=== PATIENT | male | born 1980 | race Caucasian/White ===

== ENCOUNTER 2016-10-07 11:07 | Emergency (ER) | payer BC ==
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
--- NOTE | 2016-10-07 11:45 | ER Document Report ---
ED Extremity Problem, Lower - General Chief Complaint: Leg Pain Stated Complaint: LEG AND KNEE PAIN Time seen by provider: 11:45 Mode of Arrival: Medic Information source: Patient Notes: 36 yo male c/o aubree leg pain and weakness causing him to fall since yesterday. Girlfriend told him he needed to come in to be seen. 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 No fever or chills. Also has chronic low back pain. No saddle anesthesia or radiculopathy. TRAVEL OUTSIDE OF THE [place] IN LAST 30 DAYS: No - Related Data Allergies/Adverse Reactions: amoxicillin Allergy (Verified 10/07/16 11:13) benzonatate [From [employer]] Allergy (Verified 10/07/16 11:13) penicillin V Allergy (Verified 10/07/16 11:13) Past Medical History - General Information source: Patient - Social History Smoking Status: Current Every Day Smoker Chew tobacco use (# tins/day): No Frequency of alcohol use: Occasional Drug Abuse: None Lives with: Spouse/Significant other Family History: Arthritis, CAD, Hyperlipidemia, Hypertension Patient has suicidal ideation: No Patient has homicidal ideation: No Pulmonary Medical History: Reports: Hx Bronchitis, Hx Pneumonia Neurological Medical History: Reports: Hx Migraine Psychiatric Medical History: Reports: Hx Anxiety, Hx Attention Deficit Hyperactivity Disorder, Hx Bipolar Disorder, Hx Depression Past Surgical History: Reports: Other - Denies any recent surgery but had prior sinus surgery in the past. - Immunizations Immunizations up to date: No Hx Diphtheria, Pertussis, Tetanus Vaccination: No Hx Pneumococcal Vaccination: 10/02/00 Review of Systems - Review of Systems Constitutional: No symptoms reported EENT: No symptoms reported Cardiovascular: No symptoms reported Respiratory: No symptoms reported Gastrointestinal: No symptoms reported Genitourinary: No symptoms reported Male Genitourinary: No symptoms reported Musculoskeletal: See HPI Skin: No symptoms reported Hematologic/Lymphatic: No symptoms reported Neurological/Psychological: See HPI Physical Exam - Vital signs Vitals: Temp Pulse Resp BP Pulse Ox 98.1 F 132 H 16 129/102 H 98 10/07/16 11:17 10/07/16 11:17 10/07/16 11:17 10/07/16 11:17 10/07/16 11:17 Interpretation: Normal - General General appearance: Appears well, Alert, Anxious - HEENT Head: Normocephalic, Atraumatic Eyes: Normal Pupils: PERRL Neck: Supple - Respiratory Respiratory status: No respiratory distress Chest status: Nontender Breath sounds: Normal Chest palpation: Normal - Cardiovascular Rhythm: Regular Heart sounds: Normal auscultation Murmur: No - Abdominal Inspection: Normal Distension: No distension Bowel sounds: Normal Tenderness: Nontender Organomegaly: No organomegaly - Back Back: Normal, Nontender - Extremities General upper extremity: Normal inspection, Nontender, Normal color, Normal ROM , Normal temperature General lower extremity: Normal inspection, Nontender, Normal color, Normal ROM , Normal temperature, Normal weight bearing. No: Drea's sign - Neurological Neuro grossly intact: Yes Cognition: Normal Orientation: AAOx4 [place] Coma Scale Eye Opening: Spontaneous Jason Coma Scale Verbal: Oriented [place] Coma Scale Motor: Obeys Commands Jason Coma Scale Total: 15 Speech: Normal Motor strength normal: LUE, RUE, LLE, RLE Sensory: Normal Knee - Reflex grade: 2 = Normal Ankle - Reflex grade: 2 = Normal - Psychological Associated symptoms: Normal affect, Normal mood - Skin Skin Temperature: Warm Skin Moisture: Dry Skin Color: Normal Skin irregularity: negative: Rash Course - Re-evaluation Re-evalutation: 10/07/16 11:[address] anne for orders re: CC 10/07/16 13:57 Walking normally all over the emergency department. He stating he wants pain medication and a prescription for a walker. 10/07/16 14:09 Patient was advised of his risks of not getting the 2 L of IV fluid that is recommended for his elevated CPK rhabdomyolysis. He understands that he can have renal damage without hydration. He states he will go home and drink to 3 L of fluid he does not want to stay due to anxiety. He states he will sign out AMA form and accept the risk of leaving without the IV fluid. He keeps asking for pain medication and a walker prescription 10/07/16 14:11 10/07/16 14:12 10/07/16 14:13 - Vital Signs Vital signs: Temp Pulse Resp BP Pulse Ox 97.9 F 120 H 18 126/79 H 98 10/07/16 14:10 10/07/16 14:10 10/07/16 14:10 10/07/16 14:10 10/07/16 14:10 - Laboratory Result Diagrams: 10/07/16 12:35 Laboratory results interpreted by me: 10/07/16 12:35 Calcium 10.4 H Creatine Kinase 1040 H Discharge - Discharge Clinical Impression: Myalgia Rhabdomyolysis Qualifiers: Rhabdomyolysis type: non-traumatic Qualified Code(s): M62.82 - Rhabdomyolysis Chronic knee pain Qualifiers: Laterality: bilateral Qualified Code(s): M25.561 - Pain in right knee Condition: Fair Disposition: AGAINST MEDICAL ADVICE Instructions: Dehydration ([facility]), Myalagia (Muscle Pain) ([facility]), Chronic Pain Control ([facility]) Additional Instructions: drink 3 liters of fluid when you get home you must drink more water daily so that you urine is light colored return to er if worse Prescriptions: Walker [Folding Walker] 1 each ASDIR PRN #1 each PRN Reason: Referrals: RACHID CASTRO MD [Primary Care Provider] - Follow up as needed
[2016-10-07 13:05] LABS: ALANINE AMINOTRANSFERASE 32 U/L (21-72); ALKALINE PHOSPHATASE 81 U/L (38-126); ANION GAP 11 (5-19); ASPARTATE AMINO TRANSFERASE 36 U/L (17-59); BILIRUBIN,TOTAL 0.5 mg/dL (0.2-1.3); BLOOD UREA NITROGEN 9 mg/dL (7-20); CALCIUM 10.4 mg/dL (8.4-10.2); CARBON DIOXIDE 30 mmol/L (22-30); CHLORIDE 101 mmol/L (98-107); CREATINE KINASE 1040 U/L (55-170); CREATININE RESULT 0.91 mg/dL (0.52-1.25); GLUCOSE 85 mg/dL (75-110); POTASSIUM 4.7 mmol/L (3.6-5.0); TOTAL PROTEIN 7.1 g/dL (6.3-8.2)
[2016-10-07] MEDS ORDERED: NORMAL SALINE 1000 ML 1,000 ML IV ONE (14:01)
[2016-10-07 14:14] VITALS: BP 126/79
== END 2016-10-07 14:18 | disposition left against medical advice (07) ==
LOC: ER 11:07
DX: M25.561 Pain in right knee (principal); M54.5 Low back pain; G89.29 Other chronic pain; M62.82 Rhabdomyolysis; F41.9 Anxiety disorder, unspecified; F17.200 Nicotine dependence, unspecified, uncomplicated; Z88.0 Allergy status to penicillin; Z88.8 Allergy status to other drugs, medicaments and biological substances; Z53.29 Procedure and treatment not carried out because of patient's decision for other reasons
CPT/HCPCS: 36415; 80053; 82550; 83735; 99283

== ENCOUNTER 2017-03-10 08:59 | Emergency (ER) | payer BC, OTHER ==
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
[2017-03-10] MEDS ORDERED: OXYCODONE-ACETAMINOPHEN 5-325 MG TABLET PO ONE (10:00)
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
[2017-03-10 11:27] VITALS: BP 141/97
[2017-03-10 12:04] LABS: URINE BARBITURATES SCREEN NEGATIVE; URINE METHADONE SCREEN NEGATIVE; URINE OPIATES LOW UNCONFIRMED POSITIVE; URINE PHENCYCLIDINE SCREEN NEGATIVE
[2017-03-10 12:13] LABS: APPEARANCE,URINE CLEAR; BILIRUBIN,URINE NEGATIVE (NEGATIVE); GLUCOSE, URINE NEGATIVE (NEGATIVE); KETONES,URINE NEGATIVE (NEGATIVE); URINE SPECIFIC GRAVITY 1.013
[2017-03-10 12:14] LABS: LEUKOCYTE ESTERASE,URINE NEGATIVE (NEGATIVE); NITRITE,URINE NEGATIVE (NEGATIVE); PROTEIN,URINE NEGATIVE (NEGATIVE); RBC,URINE NONE SEEN /HPF; UROBILINOGEN,URINE NEGATIVE mg/dL (<2.0); WBC,URINE NONE SEEN /HPF
== END 2017-03-10 12:50 | disposition home or self-care (01) ==
LOC: ER 08:59
DX: F19.90 Other psychoactive substance use, unspecified, uncomplicated (principal); R51 Headache; F17.200 Nicotine dependence, unspecified, uncomplicated; V19.9XXA Pedal cyclist (driver) (passenger) injured in unspecified traffic accident, initial encounter
CPT/HCPCS: 70450; 72125; 80307; 81001; 99284